=== PATIENT | female | born 1950 ===

== ENCOUNTER 2017-06-18 22:45 | Emergency (ER) | payer BC ==
[2017-06-18 22:59] VITALS: TEMP 98.6
[2017-06-18] MEDS ORDERED: Albuterol-Ipratrop 3 mg / 0.5 (3 ml) UD INH STA ×2 (23:40→23:41)
[2017-06-18] MEDS ORDERED: Promethazine/Cod 6.25mg-10mg/5ml Syr UD PO STA (23:41)
[2017-06-18] MEDS ORDERED: levoFLOXacin 500 mg in D5W 500 MG/100 ML BAG IVPB STA (23:51)
[2017-06-19] MEDS ORDERED: Promethazine/Cod 6.25mg-10mg/5ml Syr UD ONE (00:27)
[2017-06-19] MEDS ORDERED: Albuterol-Ipratrop 3 mg / 0.5 (3 ml) UD ONE (00:27)
--- NOTE | 2017-06-19 01:45 | ED PDOC ---
HPI: General Adult Time Seen by Provider: 06/18/17 23:07 Chief Complaint (Nursing): Shortness Of Breath Chief Complaint (Provider): flu-like symtomps History Per: Patient History/Exam Limitations: no limitations Onset/Duration Of Symptoms: Days (5x) Current Symptoms Are (Timing): Still Present Additional Complaint(s): Lulu Delacruz, 66 y/o female with a past medical history of HTN, gastritis, and hypothyroidism presents to the ED complaining of flu-like symptoms onset five days ago. Reports of associated symptoms of nasal congestion , dry cough, and headache. Patient has not received her flu vaccination. Denies any flu. PMD: Provider TBD Past Medical History Reviewed: Historical Data, Nursing Documentation, Vital Signs Vital Signs: Last Vital Signs Temp 98.6 F 06/18/17 22:52 Pulse 98 H 06/18/17 22:52 Resp 16 06/19/17 00:22 BP 170/76 H 06/18/17 22:52 Pulse Ox 100 06/19/17 03:05 - Medical History PMH: HTN, Hypothyroidism Denies: HIV - Surgical History Surgical History: Appendectomy, Cholecystectomy - Family History Family History: States: Unknown Family Hx - Social History Current smoker - smoking cessation education provided: No Alcohol: Social Drugs: Denies - Home Medications Home Medications: Ambulatory Orders Medication Instructions Recorded Atenolol [Tenormin] 50 mg PO DAILY 05/02/14 Cholecalciferol [Vitamin D 1000 IU] 1,000 unit PO DAILY 05/02/14 Furosemide 20 mg PO DAILY PRN 05/02/14 Ibandronate Sodium [Boniva] 150 mg PO Q30D 05/02/14 Ibuprofen 400 mg PO Q6H PRN 05/02/14 Levothyroxine Sodium 112 mcg PO DAILY 05/02/14 [Levothyroxine] Loratadine [Claritin] 10 mg PO DAILY PRN 05/02/14 Losartan [Cozaar] 50 mg PO DAILY 05/02/14 Omeprazole [Prilosec] 20 mg PO DAILY PRN 05/02/14 Benzonatate [Tessalon Perle] 100 mg PO TID PRN #15 capsule 06/19/17 Oseltamivir [Tamiflu] 75 mg PO BID #10 cap 06/19/17 levoFLOXacin [Levaquin] 500 mg PO DAILY #10 tab 06/19/17 - Allergies Allergies/Adverse Reactions: Allergies Allergy/AdvReac Type Severity Reaction Status Date / Time Penicillins Allergy RASH Verified 06/18/17 22:52 Review of Systems ROS Statement: Except As Marked, All Systems Reviewed And Found Negative Constitutional: Negative for: Fever ENT: Positive for: Nose Congestion Respiratory: Positive for: Cough (dry) Neurological: Positive for: Headache - Laboratory Results Result Diagrams: 06/19/17 02:30 06/19/17 02:30 - ECG O2 Sat by Pulse Oximetry: 100 (RA) Pulse Ox Interpretation: Normal Medical Decision Making Medical Decision Making: Time: 23:29 Initial Impression: 66 y/o female with flu-like symptoms and clinical sinusitis Initial Plan: --EKG --B-Type Natriuretic Peptide --CMP --Troponin I --CBC --PPT --Prothrombin Time [COAG] --Chest X-ray --Blood Culture --Peak Flow Pre/Post Treatment --Influenza A B --Reevaluation Labs reviewed and revealed no clinically significant abnormalities. Reports present positive for Influenza. Chest X-ray presented no active disease. Patients symptoms are well for over two days. Patient also reported she felt better. Clinical Impression: Influenza and Sinusitis Upon provider evaluation patient is medically stable, and requires no further treatment in the ED at this time. Patient will be discharged with Tamiflu, Tessalon Perle 100mg and Levaquin 500 mg for sinusitis and flu. Counseling was provided and all questions were answered regarding diagnosis and need for follow up with PMD. There is agreement to discharge plan. Return if symptoms persist or worsen Documented by Jose Guerra acting as a scribe for Ashu Gonzales MD. All medical record entries made by the Scribe were at my direction and personally dictated by me. I have reviewed the chart and agree that the record accurately reflects my personal performance of the history, physical exam, medical decision making, and the department course for this patient. I have also personally directed, reviewed, and agree with the discharge instructions and disposition. Disposition - Clinical Impression Clinical Impression: Influenza, Sinusitis - Patient ED Disposition Is Patient to be Admitted: No - Disposition Disposition: Routine/Home Disposition Time: 03:05 Condition: STABLE Prescriptions: Benzonatate [Tessalon Perle] 100 mg PO TID PRN #15 capsule PRN Reason: Cough levoFLOXacin [Levaquin] 500 mg PO DAILY #10 tab Oseltamivir [Tamiflu] 75 mg PO BID #10 cap Instructions: Sinusitis in Adults, Flu Forms: [facility] (Angolan) Print Language: CHINESE
[2017-06-19] MEDS ORDERED: levoFLOXacin 500 mg in D5W 500 MG/100 ML BAG IVPB ONE (02:31)
[2017-06-19 02:34] LABS: BASO % 0.6 % (0.0-2.0); EOS # 0.1 K/uL (0.0-0.7); EOS % 1.2 % (0.0-4.0); HEMOGLOBIN 14.2 g/dL (12.0-16.0); LYMPH # 1.5 K/uL (1.0-4.3); LYMPH % 18.1 % (20.0-40.0); MEAN CELL VOLUME 91.6 fl (81.0-99.0); MEAN CORPUSCULAR HEMOGLOBIN 30.8 pg (27.0-31.0); MEAN CORPUSCULAR HGB CONC 33.7 g/dL (33.0-37.0); MEAN PLATELET VOLUME 8.3 fl (7.2-11.7); MONO # 0.9 K/uL (0.0-0.8); MONO % 10.5 % (0.0-10.0); NEUT # 5.7 K/uL (1.8-7.0); NEUT % 69.6 % (50.0-75.0); RBC 4.6 Mil/uL (3.80-5.20); RED CELL DISTRIBUTION WIDTH 13.3 % (11.5-14.5); WHITE BLOOD COUNT 8.2 K/uL (4.8-10.8)
[2017-06-19 02:42] LABS: ALB/GLOB RATIO 1.1 (1.0-2.1); ALBUMIN 3.9 g/dL (3.5-5.0); ALT/SGPT 37 U/L (9-52); AST/SGOT 30 U/L (14-36); BLOOD UREA NITROGEN 13 mg/dl (7-17); CALCIUM 8.7 mg/dL (8.4-10.2); GFR AFRICAN-AMERICAN > 60; GFR NON-AFRICAN AMERICAN > 60
[2017-06-19 02:45] LABS: PARTIAL THROMBOPLASTIN TIME 28.3 Seconds (25.6-37.1); PROTHROMBIN TIME 11.6 Seconds (9.8-13.1)
[2017-06-19 02:53] LABS: B-TYPE NATRIURETIC PEPTIDE 242 pg/ml (0-900)
[2017-06-19 03:43] VITALS: BP 154/72; PULSE 97; RESP 18; O2SAT 98
--- NOTE | 2017-06-19 09:18 | RAD ---
HISTORY: Cough COMPARISON: 07/28/2013. FINDINGS: LUNGS: The lungs are clear. PLEURA: No significant pleural effusion identified, no pneumothorax apparent. CARDIOVASCULAR: Normal. OSSEOUS STRUCTURES: No significant abnormalities. VISUALIZED UPPER ABDOMEN: Normal. OTHER FINDINGS: None. IMPRESSION: No active pulmonary disease.
--- NOTE | 2017-06-19 23:41 | CARD ---
APPROVED REPORT EKG Measurement Heart [id number] <Conclusion> Normal sinus rhythm Incomplete right bundle branch block Moderate voltage criteria for LVH, may be normal variant Borderline ECG
== END 2017-06-19 03:52 | disposition home or self-care (01) ==
LOC: H.ER 22:45
DX: J11.1 Influenza due to unidentified influenza virus with other respiratory manifestations (principal); J32.9 Chronic sinusitis, unspecified; E03.9 Hypothyroidism, unspecified; I10 Essential (primary) hypertension; Z88.0 Allergy status to penicillin
CPT/HCPCS: 71045; 80053; 83880; 84484; 85025; 85610; 85730; 87040; 87804; 93005; 94640; 96365; 96375; 99283; J1885